=== PATIENT | female | born 1975 | race African-American/Black ===

== ENCOUNTER 2018-09-04 09:35 | Emergency (ER) | payer OTHER ==
[2018-09-04 09:49] VITALS: TEMP 98.8; BMI 35.8
--- NOTE | 2018-09-04 10:17 | PDOC ---
History of Present Illness - General History Source: Patient Exam Limitations: No Limitations - History of Present Illness Initial Comments: 09/04/18 11:01 The patient is a 42-year-old female, with a past medical history of HTN and DM ( not on meds), who presents to the ED with complaints of lightheadedness/ dizziness/nausea that progressively worsened over the past few years. She denies any head trauma or loss of consciousness. Pt endorses mild nausea, generalized weakness, urinary freqeuncy. Patient states that she has not seen a PMD in years and has tried to manage her HTN and DM through diet. Patient realizes that her symptoms have been worsening and she has not been taking care of herself so she decided to report to the ER for further evaluation. The patient denies any fevers, chills, vomiting, diarrhea, or abdominal pain. Pt denies any neck pain, numbness/tingling/weakness, double vision, dysarthria. Allergies: NKA Surgical History: None reported. Social History: None reported. <Pepe Tomlin - Last Filed: 09/04/18 11:51> <Juanis Parsons - Last Filed: 09/04/18 12:38> - General Chief Complaint: Lightheaded Stated Complaint: DIZZINESS, FATIGUE, WEAKNESS Time Seen by Provider: 09/04/18 09:54 Past History - Past Medical History COPD: No Diabetes: Yes HTN: Yes (stopped meds) - Suicide/Smoking/Psychosocial Hx Smoking Status: No Smoking History: Never smoked Have you smoked in the past 12 months: No Number of Cigarettes Smoked Daily: 0 Hx Alcohol Use: No Drug/Substance Use Hx: No Substance Use Type: None Hx Substance Use Treatment: No <Pepe Tomlin - Last Filed: 09/04/18 11:51> <Juanis Parsons - Last Filed: 09/04/18 12:38> - Past Medical History Allergies/Adverse Reactions: Allergies Allergy/AdvReac Type Severity Reaction Status Date / Time No Known Allergies Allergy Verified 09/04/18 09:45 Home Medications: Ambulatory Orders Amlodipine Besylate 5 mg PO DAILY #10 tablet 09/04/18 Nitrofurantoin Monohyd/M-Cryst [Macrobid -] 100 mg PO BID #10 capsule 09/04/18 Review of Systems - Review of Systems Able to Perform ROS?: Yes Comments:: 09/04/18 11:06 CONSTITUTIONAL: No reported: Fever, Chills, Diaphoresis, Generalized Weakness, Malaise, Loss of Appetite HEENT: No reported: Rhinorrhea, Nasal Congestion, Throat Pain, Throat Swelling, Difficulty Swallowing, Mouth Swelling, Ear Pain, Eye Pain, Visual Changes CARDIOVASCULAR: Reported: No reported: Syncope, Palpitations, Irregular Heart Rate, Lightheadedness, Peripheral Edema RESPIRATORY: No reported: Cough, Shortness of Breath, SOB with Exertion, Orthopnea, Wheezing , Stridor, Hemoptysis GASTROINTESTINAL: Reported: (+)Nausea No reported: Abdominal pain, Abdominal Distension, Vomiting, Diarrhea, Constipation, Melena, Hematochezia GENITOURINARY: No reported: Dysuria, Frequency, Urgency, Hesitancy, Flank Pain, Genital Pain MUSCULOSKELETAL: No reported: Myalgia, Arthralgia, Joint Swelling, Back pain, Neck Pain SKIN: No reported: Rash, Itching, Pallor HEMEATOLOGIC/IMMUNOLOGIC: No reported: Easy Bleeding, Easy Bruising, Lymphadenopathy, Frequent infections ENDOCRINE: No reported: Unexplained Weight Gain, Unexplained Weight Loss, Heat Intolerance , Cold Intolerance NEUROLOGIC: Reported: (+)Lightheadedness, Dizziness, Unsteady Gait No reported: Headache, Focal Weakness, Paresthesias, Vertigo, Seizure, Mental Status Changes, Incontinence PSYCHIATRIC: No reported: Anxiety, Depression <Nabor,Pepe - Last Filed: 09/04/18 11:51> *Physical Exam - Vital Signs Last Vital Signs Temp Pulse Resp BP Pulse Ox 98.8 F 67 16 185/91 H 99 09/04/18 09:46 09/04/18 09:46 09/04/18 09:46 09/04/18 09:46 09/04/18 09:46 - Physical Exam Comments: 09/04/18 10:45 GENERAL: The patient is awake, alert, and fully oriented, Nontoxic - in no acute distress. HEAD: Normocephalic, atraumatic. EYES: extraocular movements intact, sclera anicteric, conjunctiva clear. ENT: Normal voice, Moist mucous membranes. NECK: Normal range of motion, supple LUNGS: Breath sounds equal, clear to auscultation bilaterally. No wheezes, no rhonchi, no rales. HEART: Regular rate and rhythm, normal S1 and S2 without murmur, rub or gallop. ABDOMEN: Soft, nontender, normoactive bowel sounds. No guarding, no rebound. . No CVA tenderness EXTREMITIES: Normal range of motion, no edema. No clubbing or cyanosis. No cords, erythema, or tenderness. NEUROLOGICAL: No facial assymetry, Normal speech, PSYCH: Normal mood, normal affect. SKIN: Warm, Dry, normal turgor, <Pepe Tomlin - Last Filed: 09/04/18 11:51> - Vital Signs Last Vital Signs Temp Pulse Resp BP Pulse Ox 98.8 F 66 18 170/104 H 99 09/04/18 09:46 09/04/18 12:30 09/04/18 12:30 09/04/18 12:30 09/04/18 12:30 <Juanis Parsons - Last Filed: 09/04/18 12:38> Heart Score/ECG Review - ECG Impressions Comment:: 09/04/18 11:08 Twelve-lead EKG was performed and reviewed by me. There is normal sinus rhythm with a normal rate. rate of 65 The axis is normal. The intervals are normal. There is normal R wave progression There are no ST or T wave abnormalities. <NaborPepe tipton - Last Filed: 09/04/18 11:51> ED Treatment Course - LABORATORY CBC & Chemistry Diagram: 09/04/18 10:30 09/04/18 10:30 <Pepe Tomlin - Last Filed: 09/04/18 11:51> - LABORATORY CBC & Chemistry Diagram: 09/04/18 10:30 09/04/18 10:30 - ADDITIONAL ORDERS Additional order review: Laboratory Results 09/04/18 09/04/18 09/04/18 10:38 10:30 10:30 VBG pH 7.33 POC VBG pCO2 56.4 H POC VBG pO2 31.8 Mixed VBG HCO3 29.2 H Sodium 139 Potassium 3.7 Chloride 104 Carbon Dioxide 31 Anion Gap 4 L BUN 13 Creatinine 1.2 Creat Clearance w eGFR 49.27 Random Glucose 225 H Calcium 8.8 Total Bilirubin 0.5 AST 24 ALT 28 Alkaline Phosphatase 95 Total Protein 8.2 Albumin 3.5 Urine Color Yellow Urine Appearance Slcloudy Urine pH 6.0 Ur Specific [place] 1.014 Urine Protein Negative Urine Glucose (UA) 2+ H Urine Ketones Negative Urine Blood Negative Urine Nitrite Positive Urine Bilirubin Negative Urine Urobilinogen Negative Ur Leukocyte Esterase 1+ H Urine WBC (Auto) 79 Urine RBC (Auto) 1 Ur Epithelial Cells Rare Urine Bacteria Many Hyaline Casts 2 Urine Mucus Rare Acetone, Qual Negative L 09/04/18 10:30 VBG pH POC VBG pCO2 POC VBG pO2 Mixed VBG HCO3 Sodium Cancelled Potassium Cancelled Chloride Cancelled Carbon Dioxide Cancelled Anion Gap Cancelled BUN Cancelled Creatinine Cancelled Creat Clearance w eGFR Cancelled Random Glucose Cancelled Calcium Cancelled Total Bilirubin Cancelled AST Cancelled ALT Cancelled Alkaline Phosphatase Cancelled Total Protein Cancelled Albumin Cancelled Urine Color Urine Appearance Urine pH Ur Specific [place] Urine Protein Urine Glucose (UA) Urine Ketones Urine Blood Urine Nitrite Urine Bilirubin Urine Urobilinogen Ur Leukocyte Esterase Urine WBC (Auto) Urine RBC (Auto) Ur Epithelial Cells Urine Bacteria Hyaline Casts Urine Mucus Acetone, Qual 09/04/18 10:30 RBC 4.73 MCV 79.2 L MCHC 33.0 RDW 14.7 MPV 9.9 Neutrophils % 60.2 D Lymphocytes % 32.4 D Monocytes % 6.1 Eosinophils % 0.6 D Basophils % 0.7 D <Juanis Parsons - Last Filed: 09/04/18 12:38> Medical Decision Making - Medical Decision Making 09/04/18 10:16 42y hx of htn, dm (off meds due to not following up) presents with vague omplaints of lightehadedness, urinary irritation, nausea. no specific complaints of localizing pain or discomfort. exam unremarkable will ck labs to r/o metabolic derangement/dka, anemia ekg to screen for acs (although pt dnies any typical or atypical anginal equivalents) will reassess 09/04/18 11:51 The patient's labs were reviewed it is noted for hyperglycemia without signs of DKA. The patient's UA consistent with UTI we'll discharge patient with a course of antibiotics. Have the patient follow up with primary care return precautions were discussed I discussed the physical exam findings, ancillary test results and final diagnoses with the patient. I answered all of the patient's questions. The patient was satisfied with the care received and felt comfortable with the discharge plan and treatment plan. The patient will call their primary care physician within 24 hours to arrange follow-up and will return to the Emergency Department with any new, persistent or worsening symptoms. <Pepe Tomlin - Last Filed: 09/04/18 11:51> *DC/Admit/Observation/Transfer - Discharge Dispostion Decision to Admit order: No <Pepe Tomlin - Last Filed: 09/04/18 11:51> <Juanis Parsons - Last Filed: 09/04/18 12:38> Diagnosis at time of Disposition: Hyperglycemia Urinary tract infection Qualifiers: Urinary tract infection type: site unspecified Hematuria presence: with hematuria Qualified Code(s): N39.0 - Urinary tract infection, site not specified Hypertension Qualifiers: Hypertension type: unspecified Qualified Code(s): I10 - Essential (primary) hypertension - Discharge Dispostion Disposition: HOME Condition at time of disposition: Improved - Prescriptions Prescriptions: Amlodipine Besylate 5 mg PO DAILY #10 tablet Nitrofurantoin Monohyd/M-Cryst [Macrobid -] 100 mg PO BID #10 capsule - Referrals Referrals: [facility] [place] [facility] [Provider Group] - Patient Instructions Printed Discharge Instructions: DI for Urinary Tract Infection (UTI) Additional Instructions: Return to the emergency department immediately with ANY new, persistent or worsening symptoms clearing any fevers, chills, neck pain or other concerns. Your blood pressure and blood sugar was elevated here please take medications as prescribed and you must follow up with your primary care doctor for further evaluation of your diabetes and blood pressure. Results were discussed with you. Please make sure your doctor reviews the results of your emergency evaluation.
[2018-09-04 10:43] LABS: BASO % 0.7 % (0-2.0); EOS % 0.6 % (0-4.5); HEMATOCRIT 37.4 % (32.4-45.2); HEMOGLOBIN 12.3 GM/dL (10.7-15.3); LYMPH % 32.4 % (8-40); MCH 26.1 pg (25.7-33.7); MEAN CELL VOLUME 79.2 fl (80-96); MEAN PLT VOLUME 9.9 fl (7.5-11.1); MONO % 6.1 % (3.8-10.2); NEUT % 60.2 % (42.8-82.8); PLATELET COUNT 284 K/MM3 (134-434); RBC 4.73 M/mm3 (3.60-5.2); RDW 14.7 % (11.6-15.6); WHITE BLOOD COUNT 8.6 K/mm3 (4.0-10.0)
[2018-09-04 10:57] LABS: VENOUS PC02 56.4 mmHg (38-52); VENOUS PH 7.33 (7.32-7.42); VENOUS PO2 31.8 mmHg (28-48)
[2018-09-04 10:58] LABS: URINE APPEARANCE SLCLOUDY; URINE BILIRUBIN NEGATIVE (<2.0 mg/dL); URINE COLOR YELLOW; URINE GLUCOSE (UA) 2+ (NEGATIVE); URINE KETONE NEGATIVE (NEGATIVE); URINE LEUK ESTERASE 1+ (NEGATIVE); URINE NITRITE POSITIVE (NEGATIVE); URINE PROTEIN NEGATIVE (NEGATIVE); URINE UROBILINOGEN NEGATIVE mg/dL (0.2-1.0)
[2018-09-04 11:04] LABS: EPI CELLS RARE /HPF (FEW); URINE BACTERIA MANY /hpf (NONE SEEN); URINE HYALINE CAST 2 /lpf; URINE MUCUS RARE
[2018-09-04 11:30] LABS: ALBUMIN 3.5 g/dl (3.4-5.0); ALK PHOS 95 U/L (45-117); ANION GAP 4 MMOL/L (8-16); BILIRUBIN,TOTAL 0.5 mg/dL (0.2-1); BLOOD UREA NITROGEN 13 mg/dL (7-18); CALCIUM 8.8 mg/dL (8.5-10.1); CHLORIDE 104 mmol/L (98-107); CO2 31 mmol/L (21-32); CREATININE 1.2 mg/dL (0.55-1.3); GLUCOSE,RANDOM 225 mg/dL (74-106); POTASSIUM 3.7 mmol/L (3.5-5.1); SGOT/AST 24 U/L (15-37); SGPT/ALT 28 U/L (13-61); SODIUM 139 mmol/L (136-145); TOT PROT 8.2 g/dl (6.4-8.2)
[2018-09-04 11:43] LABS: ACETONE SERUM NEGATIVE (NEGATIVE)
[2018-09-04] MEDS ORDERED: NITROFURANTOIN MACROCRYSTAL 50 MG CAPSULE (FP) PO SCH (12:15)
[2018-09-04] MEDS ORDERED: NITROFURANTOIN MACROCRYSTAL 50 MG CAPSULE (FP) ONE (12:20)
[2018-09-04 12:32] VITALS: BP 170/104; PULSE 66
--- NOTE | 2018-09-04 17:03 | EKG ---
Test Reason : Blood Pressure : / mmHG Vent. Rate : 065 BPM Atrial Rate : 065 BPM P-R Int : 170 ms QRS Dur : 086 ms QT Int : 416 ms P-R-T Axes : 065 048 055 degrees QTc Int : 432 ms NORMAL SINUS RHYTHM POSSIBLE LEFT ATRIAL ENLARGEMENT BORDERLINE ECG WHEN COMPARED WITH ECG OF 18-NOV-2012 18:22, VENT. RATE HAS DECREASED BY 34 BPM Confirmed by MD PEREZ, SHAWN ([id number]) on 09/04/2018 5:03:27 PM Referred By: Confirmed By:SHAWN TODD MD
== END 2018-09-04 12:35 | disposition home or self-care (01) ==
LOC: JER 09:35
DX: N39.0 Urinary tract infection, site not specified (principal); E11.65 Type 2 diabetes mellitus with hyperglycemia; I10 Essential (primary) hypertension
CPT/HCPCS: 36415; 80053; 81003; 81015; 82009; 82803; 85025; 87086; 87186; 87389; 93005; 93010; 99285-25

== ENCOUNTER 2019-07-24 09:59 | Emergency (ER) | payer OTHER ==
[2019-07-24 10:05] VITALS: BMI 34.4
--- NOTE | 2019-07-24 10:27 | PDOC ---
History of Present Illness - General Chief Complaint: Pain, Acute Stated Complaint: RT. ARM PAIN Time Seen by Provider: 07/24/19 10:17 History Source: Patient - History of Present Illness Timing/Duration: reports: yesterday Past History - Past Medical History Allergies/Adverse Reactions: Allergies Allergy/AdvReac Type Severity Reaction Status Date / Time No Known Allergies Allergy Verified 07/24/19 10:05 Home Medications: Ambulatory Orders Amlodipine Besylate 5 mg PO DAILY #10 tablet 09/04/18 Nitrofurantoin Monohyd/M-Cryst [Macrobid -] 100 mg PO BID #10 capsule 09/04/18 Amlodipine Besylate [Norvasc -] 5 mg PO DAILY #30 tablet 07/24/19 COPD: No Diabetes: Yes HTN: Yes (stopped meds) Other medical history: ARTHRITIS, SHORT TERM MEMMORY LOSS - Suicide/Smoking/Psychosocial Hx Smoking Status: No Smoking History: Never smoked Have you smoked in the past 12 months: No Number of Cigarettes Smoked Daily: 0 Hx Alcohol Use: No Drug/Substance Use Hx: No Substance Use Type: None Hx Substance Use Treatment: No Review of Systems - Review of Systems Constitutional: No: Chills, Fever Respiratory: No: Cough, Shortness of Breath Cardiac (ROS): Yes: Chest Pain ABD/GI: No: Nausea, Vomiting *Physical Exam - Vital Signs Last Vital Signs Temp Pulse Resp BP Pulse Ox 98.5 F 75 16 171/87 H 100 07/24/19 10:02 07/24/19 10:02 07/24/19 10:02 07/24/19 10:02 07/24/19 10:02 - Physical Exam General Appearance: Yes: Appropriately Dressed. No: Apparent Distress HEENT: positive: Normal Voice Neck: positive: Supple Respiratory/Chest: positive: Lungs Clear, Normal Breath Sounds. negative: Respiratory Distress Cardiovascular: positive: Regular Rate, S1, S2 Gastrointestinal/Abdominal: positive: Soft. negative: Tender Integumentary: positive: Dry, Warm Neurologic: positive: Fully Oriented, Alert, Normal Mood/Affect Heart Score/ECG Review - History History: Slightly suspicious - Electrocardiogram EKG: Normal - Age Age: </= 45 - Risk Factors Risk Factors Heart Score: Yes Hx Hypertension Based on the list above the patient has:: 1-2 risk factors - Troponin Troponin: </= normal limit - Score Heart Score - Total: 1 - ECG Intrepretation Comment:: 07/24/19 10:42 Twelve-lead EKG was performed and reviewed by me. There is normal sinus rhythm with a normal rate. The axis is normal. The intervals are normal. There are no ST or T wave abnormalities. Impression: Normal twelve-lead EKG Medical Decision Making - Medical Decision Making 07/24/19 10:20 43 yo F, h/o HTN, non-compliant w/ meds x several months, here with chest pain. Patient states yesterday while closing door, she developed sharp left-sided chest pain that lasted for minutes, then resolved. No recurrence of pain since then and denies shortness of breath, diaphoresis, nausea or vomiting. No cardiac w/u in past. Pt also reports R shoulder pain x months and concerned she might have arthritis. No trauma. No sensory changes, weakness or neck pain see exam Atypical CP Since resolved Exam only remarkable for elevated BP (non-compliant w meds) -dose of home BP meds in ED -ekg -trop x 1 given duration of sxs -CXR -anticipate dc 07/24/19 11:50 EKG, CXR and labs neg. Rpt BP elevated. Pt remains asx. Will dc to resume BP meds and f/u with PMD. To return as needed as per discussed *DC/Admit/Observation/Transfer Diagnosis at time of Disposition: Chest pain Qualifiers: Chest pain type: unspecified Qualified Code(s): R07.9 - Chest pain, unspecified Shoulder pain, right Qualifiers: Chronicity: chronic Qualified Code(s): M25.511 - Pain in right shoulder - Discharge Dispostion Disposition: HOME Condition at time of disposition: Improved - Prescriptions Prescriptions: Amlodipine Besylate [Norvasc -] 5 mg PO DAILY #30 tablet - Referrals - Patient Instructions Printed Discharge Instructions: DI for Atypical Chest Pain, DI for Shoulder Pain Additional Instructions: Resume your BP meds and follow-up with your PMD. For your chronic shoulder pain, take Tylenol or Motrin and discussed with your PMD - Post Discharge Activity
[2019-07-24] MEDS ORDERED: amLODIPine BESYLATE 5 MG TABLET (FP) PO ONE (10:37)
[2019-07-24] MEDS ORDERED: amLODIPine BESYLATE 5 MG TABLET (FP) ONE (10:50)
[2019-07-24 12:06] VITALS: BP 184/92; PULSE 68; TEMP 98
--- NOTE | 2019-07-24 12:40 | PDOC ---
*Physical Exam - Vital Signs Last Vital Signs Temp Pulse Resp BP Pulse Ox 98.0 F 68 16 184/92 H 99 07/24/19 12:06 07/24/19 12:06 07/24/19 10:02 07/24/19 12:06 07/24/19 12:06 ED Treatment Course - ADDITIONAL ORDERS Additional order review: Laboratory Results 07/24/19 07/24/19 10:26 10:26 Creatine Kinase 142 Troponin I < 0.02 Serum , Qual Negative - RADIOLOGY Radiology Studies Ordered: Category Date Time Status CHEST PA & LAT [RAD] Stat Radiology 07/24/19 10:26 Taken - Medications Given in the ED: ED Medications Discontinued Medications Generic Name Dose Route Start Last Admin Trade Name Freq PRN Reason Stop Dose Admin Amlodipine Besylate 5 mg 07/24/19 10:37 07/24/19 10:55 Norvasc - PO 07/24/19 10:38 5 mg ONCE ONE Administration Medical Decision Making - Medical Decision Making 07/24/19 12:39 Pt returned to ED, had gone upstairs to get coffee. Signed dc papers *DC/Admit/Observation/Transfer Diagnosis at time of Disposition: Chest pain Qualifiers: Chest pain type: unspecified Qualified Code(s): R07.9 - Chest pain, unspecified Shoulder pain, right Qualifiers: Chronicity: chronic Qualified Code(s): M25.511 - Pain in right shoulder - Discharge Dispostion Disposition: HOME Condition at time of disposition: Improved - Prescriptions Prescriptions: Amlodipine Besylate [Norvasc -] 5 mg PO DAILY #30 tablet - Referrals - Patient Instructions Printed Discharge Instructions: DI for Atypical Chest Pain, DI for Shoulder Pain Additional Instructions: Resume your BP meds and follow-up with your PMD. For your chronic shoulder pain, take Tylenol or Motrin and discussed with your PMD - Post Discharge Activity
--- NOTE | 2019-07-24 21:19 | EKG ---
Test Reason : Blood Pressure : / mmHG Vent. Rate : 072 BPM Atrial Rate : 072 BPM P-R Int : 168 ms QRS Dur : 076 ms QT Int : 400 ms P-R-T Axes : 066 061 068 degrees QTc Int : 438 ms NORMAL SINUS RHYTHM POSSIBLE LEFT ATRIAL ENLARGEMENT BORDERLINE ECG WHEN COMPARED WITH ECG OF 04-SEP-2018 10:02, NONSPECIFIC T WAVE ABNORMALITY NOW EVIDENT IN LATERAL LEADS Confirmed by TK TSANG, CHELLY ([id number]) on 07/24/2019 9:19:15 PM Referred By: Confirmed By:CHELLY FREY MD
== END 2019-07-24 12:22 | disposition home or self-care (01) ==
LOC: JER 09:59
DX: R07.89 Other chest pain (principal); M25.511 Pain in right shoulder; I10 Essential (primary) hypertension; E11.9 Type 2 diabetes mellitus without complications; M12.9 Arthropathy, unspecified
CPT/HCPCS: 36415; 71046-TC-FY; 82550; 84484; 84703; 93005; 93010; 99282-25

== ENCOUNTER 2019-10-25 06:47 | Emergency (ER) | payer OTHER ==
[2019-10-25 07:16] VITALS: BMI 35.9
--- NOTE | 2019-10-25 07:45 | PDOC ---
History of Present Illness - General Chief Complaint: Vaginal Bleeding Stated Complaint: VAGINAL BLEEDING Time Seen by Provider: 10/25/19 07:44 History Source: Patient Exam Limitations: No Limitations Past History - Past Medical History Allergies/Adverse Reactions: Allergies Allergy/AdvReac Type Severity Reaction Status Date / Time No Known Allergies Allergy Verified 07/24/19 10:05 Home Medications: Ambulatory Orders Ferrous Sulfate [Iron] 325 mg PO DAILY 10/25/19 95/Iron Fum/Folic/Dha [ + Dha Combo Pack] 1 each PO DAILY 10/25 COPD: No Diabetes: Yes HTN: Yes - Psycho Social/Smoking Cessation Hx Smoking Status: No Smoking History: Never smoked Have you smoked in the past 12 months: No Number of Cigarettes Smoked Daily: 0 Information on smoking cessation initiated: No Hx Alcohol Use: No Drug/Substance Use Hx: No Substance Use Type: None Hx Substance Use Treatment: No *Physical Exam - Vital Signs Last Vital Signs Temp Pulse Resp BP Pulse Ox 98.2 F 73 17 179/99 H 99 10/25/19 07:03 10/25/19 07:03 10/25/19 07:03 10/25/19 07:03 10/25/19 07:03
--- NOTE | 2019-10-25 08:27 | PDOC ---
History of Present Illness - General Chief Complaint: Vaginal Bleeding Stated Complaint: VAGINAL BLEEDING Time Seen by Provider: 10/25/19 07:44 - History of Present Illness Initial Comments: 10/25/19 08:27 44F G8 currently 3 month presenting with vaginal bleeding and mild Left pelvic cramping for the past 3 days. Mild spotting for the first 3 days but today saw some larger clots. care only with vitamins, never had an ultrasound. Denies n/v/d, fever or chills. Past History - Past Medical History Allergies/Adverse Reactions: Allergies Allergy/AdvReac Type Severity Reaction Status Date / Time No Known Allergies Allergy Verified 07/24/19 10:05 Home Medications: Ambulatory Orders Ferrous Sulfate [Iron] 325 mg PO DAILY 10/25/19 95/Iron Fum/Folic/Dha [ + Dha Combo Pack] 1 each PO DAILY 10/25 COPD: No Diabetes: Yes HTN: Yes - Psycho Social/Smoking Cessation Hx Smoking Status: No Smoking History: Never smoked Have you smoked in the past 12 months: No Number of Cigarettes Smoked Daily: 0 Information on smoking cessation initiated: No Hx Alcohol Use: No Drug/Substance Use Hx: No Substance Use Type: None Hx Substance Use Treatment: No Review of Systems - Review of Systems Able to Perform ROS?: Yes Is the patient limited Peruvian proficient: No Constitutional: No: Symptoms Reported HEENTM: No: Symptoms Reported Respiratory: No: Symptoms reported Cardiac (ROS): No: Symptoms Reported ABD/GI: Yes: See HPI : No: Symptoms Reported Musculoskeletal: No: Symptoms Reported Integumentary: No: Symptoms Reported Neurological: No: Symptoms reported All Other Systems: Reviewed and Negative *Physical Exam - Vital Signs Last Vital Signs Temp Pulse Resp BP Pulse Ox 98.2 F 73 17 179/99 H 99 10/25/19 07:03 10/25/19 07:03 10/25/19 07:03 10/25/19 07:03 10/25/19 07:03 - Physical Exam General Appearance: Yes: Nourished, Appropriately Dressed. No: Apparent Distress HEENT: positive: EOMI, MAR, Normal ENT Inspection Respiratory/Chest: positive: Lungs Clear, Normal Breath Sounds. negative: Chest Tender, Respiratory Distress Cardiovascular: positive: Regular Rhythm, Regular Rate, S1, S2 Female Pelvic Exam: positive: normal external exam, cervical os closed, vaginal bleeding Gastrointestinal/Abdominal: positive: Normal Bowel Sounds, Protuberent, Guarding. negative: Tender Musculoskeletal: positive: Normal Inspection. negative: CVA Tenderness Extremity: positive: Normal Capillary Refill, Normal Inspection, Normal Range of Motion Integumentary: positive: Normal Color, Dry, Warm Neurologic: positive: Fully Oriented, Alert, Normal Mood/Affect, Normal Response , Motor Strength / ED Treatment Course - LABORATORY CBC & Chemistry Diagram: 10/25/19 08:15 10/25/19 08:15 - RADIOLOGY Radiology Studies Ordered: Category Date Time Status <14WKS US [US] Stat Ultrasound 10/25/19 08:03 Ordered Medical Decision Making - Medical Decision Making 10/25/19 08:31 44ff 3 month with vaginal bleeding will r/o ectopic, miscarriage with pelvic exam, TVUS and bbeta. as well as UTI with UA 10/25/19 10:02 OS closed, betahcg in the 1200's TVUS: Intrauterine gestation of approximately 6 weeks gestational age of uncertain viability. demise suspected. Clinical and laboratory correlation and follow-up ultrasonography recommended. Please see above discussion. Waiting for type ands screen then dc with follow up in 2 days to compare beta HCG levels Discharge - Discharge Information Problems reviewed: Yes Clinical Impression/Diagnosis: Threatened Condition: Stable Disposition: HOME - Admission No - Follow up/Referral - Patient Discharge Instructions Patient Printed Discharge Instructions: DI for Threatened Additional Instructions: Come back to the Emergency department in 2 days to repeat blood work. - Post Discharge Activity
--- NOTE | 2019-10-25 08:51 | PDOC ---
Attending Attestation - Resident Resident Name: Omar Pelletier - ED Attending Attestation I have performed the following: I have examined & evaluated the patient, The case was reviewed & discussed with the resident, I agree w/resident's findings & plan, Exceptions are as noted - HPI HPI: 10/25/19 08:50 Ms. Bocanegra is a 44 yo G8P She presents to the ER with a complaint of vaginal bleeding Pt has noted spotting for the past 3 days She has not saturated any pads, she has noted vaginal bleeding when she wipes Mild lower abdominal pressure, no cramping pain No lightheadedness or chest pain No nausea or vomiting No diarrhea No dysuria No flank pain 10/25/19 08:51 10/25/19 09:06 - Physicial Exam PE: 10/25/19 09:09 GENERAL: The patient is in no acute distress. ENT: Ears normal, nares patent, oropharynx clear without exudates. Moist mucous membranes. NECK: Normal range of motion, supple LUNGS: Breath sounds equal, clear to auscultation bilaterally. No wheezes, and no crackles. HEART:Regular rate and rhythm, normal S1 and S2 without murmur, rub or gallop. ABDOMEN: Soft, nontender PELVIC: per Dr. Pelletier EXTREMITIES: Normal range of motion, no edema. NEUROLOGICAL: Cranial nerves II through XII grossly intact. Normal speech. No focal neurological deficits. SKIN: Warm, Dry, normal turgor, no rashes or lesions noted. - Medical Decision Making 10/25/19 09:09 44 yo F presenting with vaginal bleeding DD: Threatened AB, Ectopic, AB, subchorionic hemorrhage Will do: Labs (including Type and Screen) US UA Re assess 10/25/19 09:42 Laboratory Tests 10/25/19 10/25/19 10/25/19 08:15 08:15 08:15 WBC 8.6 Hgb 12.1 Hct 36.8 Plt Count 315 BUN 15.4 Creatinine 1.2 Beta HCG, Quant 1568.0 Urine Blood Urine Nitrite Ur Leukocyte Esterase 10/25/19 08:15 WBC Hgb Hct Plt Count BUN Creatinine Beta HCG, Quant Urine Blood 2+ H Urine Nitrite Negative Ur Leukocyte Esterase Negative 10/25/19 11:41 Laboratory Tests 10/25/19 08:15 Blood Type O POSITIVE U/S: Intrauterine gestational 6 weeks uncertain viability D/C home Copy Chaser followup in 2 days Return for heavy vaginal bleeding I discussed the physical exam findings, ancillary test results and final diagnoses with the patient. I answered all of the patient's questions. The patient was satisfied with the care received and felt comfortable with the discharge plan and treatment plan. The patient will call their primary care physician within 24 hours to arrange follow-up and will return to the Emergency Department with any new, persistant or worsening symptoms. She understands that it is extremely important that she sees her physician within 48 hours for a repeat visit, including repeat blood work.
[2019-10-25 08:53] LABS: EOS % 1.3 % (0-4.5); HEMATOCRIT 36.8 % (32.4-45.2); HEMOGLOBIN 12.1 GM/dL (10.7-15.3); LYMPH % 35.3 % (8-40); MCH 26.1 pg (25.7-33.7); MCHC 32.8 g/dl (32.0-36.0); MEAN CELL VOLUME 79.5 fl (80-96); MEAN PLT VOLUME 10.1 fl (7.5-11.1); MONO % 8.5 % (3.8-10.2); NEUT % 53.9 % (42.8-82.8); PLATELET COUNT 315 K/MM3 (134-434); RBC 4.63 M/mm3 (3.60-5.2); RDW 15.1 % (11.6-15.6); WHITE BLOOD COUNT 8.6 K/mm3 (4.0-10.0)
[2019-10-25 09:10] LABS: URINE APPEARANCE CLEAR; URINE BILIRUBIN NEGATIVE (NEGATIVE); URINE COLOR YELLOW; URINE GLUCOSE (UA) NEGATIVE (NEGATIVE); URINE KETONE NEGATIVE (NEGATIVE); URINE LEUK ESTERASE NEGATIVE (NEGATIVE); URINE NITRITE NEGATIVE (NEGATIVE); URINE PROTEIN NEGATIVE (NEGATIVE); URINE UROBILINOGEN 0.2 mg/dL (0.2-1.0)
[2019-10-25 09:26] LABS: ALBUMIN 3.5 g/dl (3.4-5.0); BILIRUBIN,TOTAL 0.4 mg/dL (0.2-1); BLOOD UREA NITROGEN 15.4 mg/dL (7-18); CALCIUM 9.2 mg/dL (8.5-10.1); CREATININE 1.2 mg/dL (0.55-1.3); POTASSIUM 3.9 mmol/L (3.5-5.1); TOT PROT 7.8 g/dl (6.4-8.2)
[2019-10-25 10:22] LABS: INR 0.97 (0.83-1.09); PROTHROMBIN TIME (PATIENT) 11.5 SEC (9.7-13.0)
[2019-10-25 10:50] LABS: EPI CELLS 0-5 /HPF (0-5/HPF); HYALINE CASTS 0-8 /lpf (0-8); URINE BACTERIA POSITIVE /hpf (NEGATIVE); URINE WBC 0-5 /hpf (0-5)
[2019-10-25 12:02] VITALS: BP 179/84; PULSE 68; TEMP 98.1
== END 2019-10-25 12:01 | disposition home or self-care (01) ==
LOC: JER 06:47
DX: O26.891 Other specified pregnancy related conditions, first trimester (principal); O20.0 Threatened abortion; Z3A.01 Less than 8 weeks gestation of pregnancy; O24.911 Unspecified diabetes mellitus in pregnancy, first trimester; O16.1 Unspecified maternal hypertension, first trimester
CPT/HCPCS: 36415; 76801-TC; 76817-TC; 80053; 81003; 84702; 85025; 85610; 85730; 86850; 86900; 86901; 99283-25

== ENCOUNTER 2019-10-27 08:39 | Emergency (ER) | payer OTHER ==
[2019-10-27 09:20] VITALS: BP 165/92; PULSE 74; TEMP 98.6; BMI 35.3
--- NOTE | 2019-10-27 09:59 | PDOC ---
History of Present Illness - General Chief Complaint: Revisit, Lab Variance Stated Complaint: REVISIT Time Seen by Provider: 10/27/19 09:37 - History of Present Illness Initial Comments: Ms. Daljit Archer is a 44 y/o female G8 @ 6 weeks presenting with vaginal bleeding and passing of clots for the past 5 days. Reports that she likely passed products of conception yesterday. She presented here for same complaints 2 days ago, and was told she had a threatened Ab and to return for beta hcg recheck. Last beta hcg was 1568. Denies chest pain/shortness of breath. Denies dysuria. Denies diarrhea. Reports some pelvic cramping but no pain. Denies dizziness. Denies nausea/vomiting. Denies fever/chills. Past History - Past Medical History Allergies/Adverse Reactions: Allergies Allergy/AdvReac Type Severity Reaction Status Date / Time No Known Allergies Allergy Verified 10/27/19 09:20 Home Medications: Ambulatory Orders Ferrous Sulfate [Iron] 325 mg PO DAILY 10/25/19 95/Iron Fum/Folic/Dha [ + Dha Combo Pack] 1 each PO DAILY 10/25 COPD: No Diabetes: Yes HTN: Yes - Reproductive History Therapeutic (s) & number: Yes (4) Spontaneous : 1 - Psycho Social/Smoking Cessation Hx Smoking Status: No Smoking History: Never smoked Have you smoked in the past 12 months: No Number of Cigarettes Smoked Daily: 0 Hx Alcohol Use: No Drug/Substance Use Hx: No Substance Use Type: None Hx Substance Use Treatment: No Review of Systems - Review of Systems Comments:: GENERAL/CONSTITUTIONAL: No fever or chills. No weakness._ HEAD, EYES, EARS, NOSE AND THROAT: No change in vision. No change in hearing. No sore throat._ CARDIOVASCULAR: No chest pain or shortness of breath_ RESPIRATORY: Denies cough, hemoptysis_ GASTROINTESTINAL: No nausea, vomiting, diarrhea or constipation._ GENITOURINARY: No dysuria, frequency, or change in urination. Reports vaginal bleeding and clots. Reports lower pelvic cramping. MUSCULOSKELETAL: No joint or muscle swelling or pain. No neck or back pain._ SKIN: No rash_ NEUROLOGIC: No headache, vertigo, loss of consciousness, or change in strength/ sensation._ ENDOCRINE: No increased thirst. No abnormal weight change_ HEMATOLOGIC/LYMPHATIC: No anemia, easy bleeding, or history of blood clots._ ALLERGIC/IMMUNOLOGIC: No hives or skin allergy._ *Physical Exam - Vital Signs Last Vital Signs Temp Pulse Resp BP Pulse Ox 98.6 F 74 18 165/92 99 10/27/19 09:17 12 09:17 10/27/19 09:17 10/27/19 09:17 10/27/19 09:17 - Physical Exam GENERAL: Awake, alert, and oriented to person/place/time, in no acute distress_ HEAD: No signs of trauma, normocephalic, atraumatic _ EYES: PERRLA, EOMI, sclera anicteric, conjunctiva clear_ ENT: Hearing grossly normal, nares patent, oropharynx clear without exudates. No uvular deviation. Moist mucosa_ NECK: Normal ROM, supple, no lymphadenopathy, JVD, or masses_ LUNGS: No distress, speaks in full sentences, clear to auscultation bilaterally _ HEART: Regular rate and rhythm, normal S1 and S2, no murmurs appreciated, peripheral pulses normal and equal bilaterally._ ABDOMEN: Soft, non-tender, normoactive bowel sounds. No guarding, no rebound. No masses_ EXTREMITIES: Normal inspection, Normal range of motion, no edema. No clubbing or cyanosis_ NEUROLOGICAL: Cranial nerves II through XII grossly intact. Normal speech, normal gait, no focal sensorimotor deficits _ SKIN: Warm, Dry, normal turgor, no rashes or lesions noted_ ED Treatment Course - LABORATORY CBC & Chemistry Diagram: 10/27/19 09:54 10/27/19 09:54 Medical Decision Making - Medical Decision Making 44F here seen here 2 days ago here for re-check for beta hcg for demise. -cbc, cmp, beta hcg -TVUS 10/27/19 11:34 TVUS shows interval miscarriage and no intra-uterine . Labs reviewed. Laboratory Tests 10/27/19 10/27/19 10/27/19 09:54 09:54 09:54 WBC 10.1 H RBC 4.78 Hgb 12.3 Hct 37.6 MCV 78.8 L MCH 25.8 MCHC 32.7 RDW 14.8 Plt Count 322 MPV 10.4 Absolute Neuts (auto) 6.1 Neutrophils % 60.7 Lymphocytes % 30.9 Monocytes % 6.1 Eosinophils % 1.7 Basophils % 0.6 Nucleated RBC % 0 Sodium 138 Potassium 3.8 Chloride 103 Carbon Dioxide 28 Anion Gap 7 L BUN 13.7 Creatinine 1.4 H Est GFR (CKD-EPI)AfAm 52.83 Est GFR (CKD-EPI)NonAf 45.58 Random Glucose 250 H Calcium 9.0 Total Bilirubin 0.4 AST 17 ALT 32 Alkaline Phosphatase 77 Total Protein 7.7 Albumin 3.4 Beta HCG, Quant 443.8 Patient reassessed. VSS. Plan to d/c home, f/u OB. Patient verbalized understanding and agreement with plan. All questions answered. Return precautions given. Discharge - Discharge Information Problems reviewed: Yes Clinical Impression/Diagnosis: Miscarriage Condition: Stable Disposition: HOME - Admission No - Follow up/Referral Referrals: Elli Mendoza [Non Staff, Medical] - - Patient Discharge Instructions Patient Printed Discharge Instructions: DI for Miscarriage Additional Instructions: Please return to the emergency department with any new or worsening symptoms or concerns. Please follow up with your manager women physician or primary care physician within 72 hours. Ultrasound report reads In comparison to a prior ultrasound exam of 10/25/2019 there is no longer visualization of an intrauterine gestational sac which had contained an embryonic pole consistent with interval miscarriage. No embryonic cardiac activity was identified on the prior exam. - Post Discharge Activity
--- NOTE | 2019-10-27 10:18 | PDOC ---
Attending Attestation - Resident Resident Name: CiscoTyler - ED Attending Attestation I have performed the following: I have examined & evaluated the patient, The case was reviewed & discussed with the resident, I agree w/resident's findings & plan - HPI HPI: 10/27/19 10:19 44F presenting with intermittent VB x 5 days, seen in the ED on 10/25/19 for he sx, ultrasound revealed suspected demise, here for beta and clinical recheck. had passed large clot/substance yesterday, which she froze. no further n/v, abdominal pain, urinary sx. LMP 08/05/19, should be about 3 months. - Physicial Exam PE: 10/27/19 10:18 Agree with the resident's HPI and PE as documented in the electronic medical record. NAD, well appearing, EOMI, PERRL, nl conjunctiva, anicteric; neck supple. lungs clear, RRR, abdomen soft nontender. obese. no rebound, guarding. Back nontender. ISIDRO x4, no focal neuro deficits. No peripheral edema. normal color for ethnicity, WWP. pelvic exam done by resident, see phys exam note. - Medical Decision Making 10/27/19 10:18 Vital Signs Temp Pulse Resp BP Pulse Ox 98.6 F 74 18 165/92 99 10/27/19 09:17 10/27/19 09:17 10/27/19 09:17 10/27/19 09:17 10/27/19 09:17 Ultrasound from yesterday revealed IUP of 6 weeks of uncertain viability, there is suspicion for demise. No evidence of heart rate. Her LMP was August 05, 2019, dates do not correlate with her LMP today's here for beta hCG check will perform. Yesterday beta hCG was 1500. Patient did pass large substance which she froze in the freezer, will send down for cytopathology but does appear to be products of conception Rh+ no RhoGam is indicated Beta hCG is decreasing appropriately now 440, will need to be trended as an outpatient with her OB Dr. Cantu. Will need follow-up beta hCG to become negative.. There is a stable left-sided ovarian cyst as seen, no intrauterine products are noted today. s/p miscarriage pt and family aware of impression and plan, OB followup. 10/27/19 11:12
[2019-10-27 10:29] LABS: BASO % 0.6 % (0-2.0); EOS % 1.7 % (0-4.5); HEMATOCRIT 37.6 % (32.4-45.2); HEMOGLOBIN 12.3 GM/dL (10.7-15.3); LYMPH % 30.9 % (8-40); MCH 25.8 pg (25.7-33.7); MCHC 32.7 g/dl (32.0-36.0); MEAN CELL VOLUME 78.8 fl (80-96); MEAN PLT VOLUME 10.4 fl (7.5-11.1); MONO % 6.1 % (3.8-10.2); NEUT % 60.7 % (42.8-82.8); PLATELET COUNT 322 K/MM3 (134-434); RBC 4.78 M/mm3 (3.60-5.2); RDW 14.8 % (11.6-15.6); WHITE BLOOD COUNT 10.1 K/mm3 (4.0-10.0)
[2019-10-27 10:38] LABS: ALBUMIN 3.4 g/dl (3.4-5.0); BILIRUBIN,TOTAL 0.4 mg/dL (0.2-1); BLOOD UREA NITROGEN 13.7 mg/dL (7-18); CREATININE 1.4 mg/dL (0.55-1.3); POTASSIUM 3.8 mmol/L (3.5-5.1); TOT PROT 7.7 g/dl (6.4-8.2)
--- NOTE | 2019-10-29 15:37 | PATH ---
Surgical Pathology Report Patient Name: ANIRUDH PEARSON [facility]. Rec. #: [id number] /Age/Gender: 1975 (Age: 44) / F Account: [id number] Location: EMERGENCY ROOM Taken: 10/27/2019 Received: 10/28/2019 Reported: 10/29/2019 Physicians: Geeta Leblanc M.D. Specimen(s) Received PRODUCTS OF CONCEPTION Clinical History 44 year old female at 6 weeks 2 days gestational age (TUUS 10/25/19) who presented with lower abdominal cramping, pelvic pain, vaginal bleeding x5 days Final Diagnosis PRODUCTS OF CONCEPTION,PASSAGE: IMMATURE CHORIONIC VILLI AND DECIDUA CONSISTENT WITH PRODUCTS OF CONCEPTION. Electronically Signed Carly Faustin M.D. Gross Description Received fresh labeled "products of conception," is a 5.0 x 4.3 x 1.2 cm aggregate of red soft tissue fragments admixed with blood clot. Villous tissue is identified. No somatic tissue is identified. A personal financial representative portion is submitted in one cassette. /10/28/2019 [facility]10/28/2019
== END 2019-10-27 12:10 | disposition home or self-care (01) ==
LOC: JER 08:39
DX: O03.9 Complete or unspecified spontaneous abortion without complication (principal)
CPT/HCPCS: 36415; 76817-TC; 80053; 84702; 85025; 88305-TC; 99282-25

== ENCOUNTER 2020-01-13 15:21 | Emergency (ER) | payer OTHER ==
[2020-01-13 15:34] VITALS: BP 156/81; PULSE 100; TEMP 102.6; BMI 36.5
[2020-01-13] MEDS ORDERED: ACETAMINOPHEN 325 MG TABLET (FP) PO ONE (15:36)
--- NOTE | 2020-01-13 15:36 | PDOC ---
Rapid Medical Evaluation Medical Evaluation: Allergies Allergy/AdvReac Type Severity Reaction Status Date / Time No Known Allergies Allergy Verified 01/13/20 15:34 Vital Signs Temp Pulse Resp BP Pulse Ox 102.6 F H 100 H 18 156/81 98 01/13/20 15:29 01/13/20 15:29 01/13/20 15:29 01/13/20 15:29 01/13/20 15:29 I have performed a brief in-person evaluation of this patient. The patient presents with a chief complaint of: fever x 2 days along with dysuria and increased frequency; has minimal cough; denies vomiting, diarrhea, recent travel Pertinent physical exam findings: In NAD, no CVA tenderness I have ordered the following: urine, Tylenol The patient will proceed to the ED for further evaluation. 01/13/20 15:35
[2020-01-13] MEDS ORDERED: ACETAMINOPHEN 325 MG TABLET (FP) ONE (16:06)
[2020-01-13 18:14] LABS: EPI CELLS 1.4 /HPF (0-5/HPF); HYALINE CASTS 25 /lpf (0-8); URINE APPEARANCE CLEAR; URINE BACTERIA 70.5 /hpf (NEGATIVE); URINE BILIRUBIN NEGATIVE (NEGATIVE); URINE COLOR YELLOW; URINE GLUCOSE (UA) NEGATIVE (NEGATIVE); URINE KETONE NEGATIVE (NEGATIVE); URINE LEUK ESTERASE 3+ (NEGATIVE); URINE NITRITE NEGATIVE (NEGATIVE); URINE PROTEIN 1+ (NEGATIVE); URINE RBC 12 /hpf (0-4); URINE WBC 132 /hpf (0-5)
--- NOTE | 2020-01-13 18:20 | PDOC ---
History of Present Illness - General Chief Complaint: Cold Symptoms Stated Complaint: FEVER/ABD PAIN Time Seen by Provider: 01/13/20 15:32 - History of Present Illness Initial Comments: 01/13/20 18:18 44-year-old female with UTI symptoms x3 days Past History - Past Medical History Allergies/Adverse Reactions: Allergies Allergy/AdvReac Type Severity Reaction Status Date / Time No Known Allergies Allergy Verified 01/13/20 15:34 Home Medications: Ambulatory Orders Ferrous Sulfate [Iron] 325 mg PO DAILY 10/25/19 95/Iron Fum/Folic/Dha [ + Dha Combo Pack] 1 each PO DAILY 10/25 Nitrofurantoin Monohyd/M-Cryst [Macrobid -] 100 mg PO BID #14 capsule 01/13/20 Phenazopyridine HCl [Pyridium] 200 mg PO TID #6 tablet 01/13/20 COPD: No Diabetes: Yes HTN: Yes - Reproductive History (#): 9 Para: 2 Therapeutic (s) & number: Yes (4) Spontaneous : 1 - Psycho Social/Smoking Cessation Hx Smoking Status: No Smoking History: Never smoked Have you smoked in the past 12 months: No Number of Cigarettes Smoked Daily: 0 Hx Alcohol Use: No Drug/Substance Use Hx: No Substance Use Type: None Hx Substance Use Treatment: No Review of Systems - Review of Systems : Yes: Burning, Dysuria, Frequency *Physical Exam - Vital Signs Last Vital Signs Temp Pulse Resp BP Pulse Ox 102.6 F H 100 H 18 156/81 98 01/13/20 15:29 01/13/20 15:29 01/13/20 15:29 01/13/20 15:29 01/13/20 15:29 - Physical Exam 01/13/20 18:18 GENERAL: The patient is awake, alert, and fully oriented, in no acute distress. HEAD: Normal with no signs of trauma. EYES: sclera anicteric, conjunctiva clear. ENT: Ears normal tympanic membranes normal oropharynx clear uvula midline NECK: Normal range of motion LUNGS: Breath sounds equal, clear to auscultation bilaterally. No wheezes, and no crackles. HEART: S1 and S2 without murmur, rub or gallop. ABDOMEN: Soft, nontender, normoactive bowel sounds. No guarding, no rebound. No masses. EXTREMITIES: Normal range of motion, no edema. No clubbing or cyanosis. No cords, erythema, or tenderness. NEUROLOGICAL: Cranial nerves II through XII grossly intact. PSYCH: Normal mood, normal affect. SKIN: Warm, Dry, normal turgor, no rashes or lesions noted. ED Treatment Course - ADDITIONAL ORDERS Additional order review: Laboratory Results 01/13/20 01/13/20 17:30 17:30 Urine Color Yellow Urine Appearance Clear Urine pH 8.0 Ur Specific [place] 1.010 Urine Protein 1+ H Urine Glucose (UA) Negative Urine Ketones Negative Urine Blood 1+ H Urine Nitrite Negative Urine Bilirubin Negative Urine Urobilinogen 1.0 Ur Leukocyte Esterase 3+ H Urine WBC (Auto) 132 Urine RBC (Auto) 12 Urine Casts (Auto) 25 U Epithel Cells (Auto) 1.4 Urine Bacteria (Auto) 70.5 Urine HCG, Qual Negative - Medications Given in the ED: ED Medications Discontinued Medications Generic Name Dose Route Start Last Admin Trade Name Freq PRN Reason Stop Dose Admin Acetaminophen 975 mg 01/13/20 15:36 01/13/20 16:57 Tylenol - PO 01/13/20 15:37 975 mg ONCE ONE Administration Medical Decision Making - Medical Decision Making 01/13/20 18:18 Macrobid for UTI follow-up with primary care physician Discharge - Discharge Information Problems reviewed: Yes Clinical Impression/Diagnosis: Urinary tract infection Condition: Stable Disposition: HOME - Admission No - Follow up/Referral - Patient Discharge Instructions Additional Instructions: You have a urinary tract infection. Please take the antibiotics as directed and return to the emergency room should symptoms worsen. The urinary tract anesthetic Pyridium may turn your urine orange to red this is normal. Again please take and finish all the antibiotics as directed as we discussed. - Post Discharge Activity
== END 2020-01-13 18:45 | disposition home or self-care (01) ==
LOC: JERFT 15:21
DX: N39.0 Urinary tract infection, site not specified (principal)
CPT/HCPCS: 81003; 84703; 87086; 87186; 99283-25

== ENCOUNTER 2023-03-21 11:22 | Emergency (ER) | payer OTHER ==
[2023-03-21 11:35] VITALS: RESP 18; BMI 36.5
[2023-03-21] MEDS ORDERED: ACETAMINOPHEN 1000 MG/100 ML BAG IVPB ONE (11:59)
[2023-03-21] MEDS ORDERED: SODIUM CHLORIDE 1,000 ML IV STA (11:59)
[2023-03-21] MEDS ORDERED: ACETAMINOPHEN INJECTION 100 ML IVPB ONE (12:21)
[2023-03-21 13:33] LABS: BASO % 0.4 % (0-2.0); EOS % 0.4 % (0-4.5); HEMATOCRIT 35.2 % (32.4-45.2); HEMOGLOBIN 11.7 GM/dL (10.7-15.3); LYMPH % 26.1 % (8-40); MCH 25.1 pg (25.7-33.7); MCHC 33.1 g/dl (32.0-36.0); MEAN CELL VOLUME 75.6 fl (80-96); MEAN PLT VOLUME 9.9 fl (7.5-11.1); MONO % 7.1 % (3.8-10.2); PLATELET COUNT 364 10^3/uL (134-434); RBC 4.66 M/mm3 (3.60-5.2); RDW 15.2 % (11.6-15.6); WHITE BLOOD COUNT 10.4 K/mm3 (4.0-10.0)
[2023-03-21 13:38] LABS: HCG,QUALITATIVE URINE Negative
[2023-03-21 13:39] LABS: EPI CELLS 8 /uL (0-25.1); HYALINE CASTS 1 /uL (0-3.1); URINE APPEARANCE CLEAR; URINE BACTERIA 6328 /uL (0-1359); URINE BILIRUBIN NEGATIVE (NEGATIVE); URINE COLOR YELLOW; URINE GLUCOSE (UA) 1+ (NEGATIVE); URINE KETONE NEGATIVE (NEGATIVE); URINE LEUK ESTERASE 2+ (NEGATIVE); URINE NITRITE NEGATIVE (NEGATIVE); URINE PROTEIN 1+ (NEGATIVE); URINE RBC 14 /uL (0-23.9); URINE WBC 306 /uL (0-25.8)
[2023-03-21 14:28] LABS: POTASSIUM 3.8 mmol/L (3.5-5.1)
[2023-03-21 14:31] LABS: BLOOD UREA NITROGEN 17.2 mg/dL (7-18); CALCIUM 9.2 mg/dL (8.5-10.1)
[2023-03-21 14:33] LABS: ALBUMIN 3.3 g/dl (3.4-5.0)
[2023-03-21 14:35] LABS: CREATININE 1.9 mg/dL (0.55-1.3)
[2023-03-21 14:36] LABS: BILIRUBIN,TOTAL 0.3 mg/dL (0.2-1); TOT PROT 8.5 g/dl (6.4-8.2)
[2023-03-21 14:48] LABS: HIV INTERPRETATION NEGATIVE (NEGATIVE)
[2023-03-21] MEDS ORDERED: amLODIPine BESYLATE 5 MG TABLET (FP) PO ONE (15:15)
[2023-03-21] MEDS ORDERED: amLODIPine BESYLATE 5 MG TABLET (FP) ONE (15:32)
[2023-03-21 15:40] VITALS: BP 203/91; PULSE 71; TEMP 98.1
== END 2023-03-21 15:30 | disposition left against medical advice (07) ==
LOC: JER 11:22
PROC: 3E033NZ Introduction of Analgesics, Hypnotics, Sedatives into Peripheral Vein, Percutaneous Approach (ICD-10-PCS; principal; 2023-03-21)
PROC: 3E0337Z Introduction of Electrolytic and Water Balance Substance into Peripheral Vein, Percutaneous Approach (ICD-10-PCS; 2023-03-21)
DX: R10.30 Lower abdominal pain, unspecified (principal); M54.50 Low back pain, unspecified
CPT/HCPCS: 36415; 76830-TC; 80053; 81003; 83690; 84703; 85025; 86780; 87070; 87086; 87186; 87205; 87389; 87491; 87529; 87591; 99284-25

== ENCOUNTER 2023-03-22 09:26 | Emergency (ER) | payer OTHER ==
[2023-03-22 09:35] VITALS: BP 187/102; PULSE 77; RESP 18; TEMP 98.1; BMI 35.4
== END 2023-03-22 14:28 | disposition left against medical advice (07) ==
LOC: JER 09:26
DX: M54.50 Low back pain, unspecified (principal); R10.30 Lower abdominal pain, unspecified; I10 Essential (primary) hypertension; R79.89 Other specified abnormal findings of blood chemistry; R51.9 Headache, unspecified; H53.8 Other visual disturbances; N39.0 Urinary tract infection, site not specified
CPT/HCPCS: 74176-TC; 93005; 93010; 99284-25